=== PATIENT | male | born 1950 | race Caucasian/White ===

== ENCOUNTER 2023-04-02 17:06 | Emergency (ER) | payer MEDICARE, SELFPAY ==
[2023-04-02 17:16] VITALS: BP 100/76; PULSE 70; RESP 16; TEMP 36.5; O2SAT 97; BMI 25.7
--- NOTE | 2023-04-02 17:37 | HMH.EDGENADL ---
Discharge Plan Disposition Patient Disposition: Home, Self-Care Referrals Follow up/Referrals: Yvette Graves [Primary Care Provider] - See instructions Activity Restrictions/Add. Instructions Additional Instructions/Restrictions: Please treat for facial skin lacerations that are very small with topical antibiotic ointment and Band-Aids. On bedside ultrasound of the facial wound there is a 0.5 cm area 1 to 2 cm in depth that may represent a small glass foreign body. Please keep an eye on spreading redness and pus drainage. We discussed risk and benefits of attempting foreign body removal, CAT scan, etc. and with shared decision making at the moment we opted to not attempt foreign body removal. Return with any worsening concerns or symptoms. Clinical Impressions Clinical Impression: Face lacerations, Laceration of chest, Glass foreign body in skin Instructions Patient Instructions: DI for Laceration Repair Discharge ED Provider: Jose Collazo General Adult HPI General Chief complaint: Wound/Laceration Stated complaint: a Time Seen by Provider: 04/02/23 17:16 Mode of Arrival: Ambulatory Source of Information: Patient and Spouse Limitations: No Limitations Description of Symptoms (Recalled from ER Triage Doc. by RN): 72 yo M presents to ED with laceration to left side of face, by ear. and left chest wall area. pt reports that he was sandblasting glass and a piece come back and hit the pt. History of Present Illness HPI narrative: Patient is a 72-year-old male here with superficial glass lacerations after he was pressure washing a gauge with a glass wall that exploded sustaining an injury to the left lateral side of his chest and left lateral side of his face. No history of retained foreign body that is his concern at the moment. Tetanus status is unknown. No injuries elsewhere. Did not hit his eyes or anything else. Related Data Allergies Allergy/AdvReac Type Severity Reaction Status Date / Time PCN (PENICILLIN) Allergy Severe S-DIFF. Uncoded 07/04/17 14:52 [facility] Disclaimer: The information contained in this section may have been updated after the patient was seen, as this information can be updated by other users. Social History Smoking Status: Never smoker alcohol intake: never current occupational status: other Travel in the last 8 weeks: None ROS Obtained: Yes All systems reviewed & no additional complaints except as documented Physical Exam General General appearance: alert Head Head exam: other (0.5 cm laceration to the left maxillary/temporal region hemostatic wound edges well approximated) Chest Chest inspection: Present other (0.5 cm laceration to left anterior chest wall wound edges reapproximated no obvious foreign body) Respiratory Respiratory exam: Present normal lung sounds bilaterally Cardiovascular Cardiovascular exam: Present regular rate; Absent tachycardia Neurological Exam Neurological exam: Present alert and oriented X3 Medical Decision Making [place] Inquiry Pt receiving controlled substance: No Vital Signs: 04/02/23 17:16 Temperature 97.7 F Temperature Source Oral Pulse Rate [Left] 70 Respiratory Rate 16 Blood Pressure [Right Arm] 100/76 L Blood Pressure Mean [Right Arm] 84 02 Sat by Pulse Oximetry 97 Orders (Tests/Meds): ED MEDICATIONS Generic Name Dose Route Start Last Admin Trade Name Freq PRN Reason Stop Dose Admin Tetanus/Reduced Diphtheria/Acell Pertussis 0.5 ml 04/02/23 17:20 04/02/23 17:33 Tet/Diphth/Pert-Adult 0.5ml Syringe IM 04/02/23 17:21 0.5 ml .ONCE ONE Administration Medical Decision Narrative: 72-year-old male with superficial lacerations following glass that broke right in front of him hitting his chest wall and his face. No evidence of a foreign body in the chest wall but there is concern for glass foreign body in his face. I discussed with him to make a definitive diagnosis would need a
[2023-04-02 17:56] VITALS: BP 119/70; PULSE 68; RESP 19; TEMP 36.6
== END 2023-04-02 17:57 | disposition home or self-care (01) ==
PROVIDERS: Emergency Provider Student in an Organized Health Care Education/Training Program; PCP Family Medicine
DX: S01.412A Laceration without foreign body of left cheek and temporomandibular area, initial encounter (principal); S21.112A Laceration without foreign body of left front wall of thorax without penetration into thoracic cavity, initial encounter; W25.XXXA Contact with sharp glass, initial encounter; Z23 Encounter for immunization
CPT/HCPCS: 90715; 96372; 99284

== ENCOUNTER 2024-07-30 15:59 | Outpatient (CLI) | payer MEDICARE, SELFPAY ==
[2024-07-30 15:09] LABS: Alanine Aminotransferase 21 U/L (12-78); Albumin Level 4.4 g/dl (3.5-5.0); Albumin/Globulin Ratio 2.1 (1.1-1.8); Alkaline Phosphatase 96 U/L (38-126); Anion Gap 10.3 mEq/L (5-15); Aspartate Amino Transferase 37 U/L (17-59); Bilirubin,Total 0.6 mg/dl (0.2-1.3); Blood Urea Nitrogen 9 mg/dl (9-20); Calcium 9.2 mg/dl (8.4-10.2); Carbon Dioxide 28 mmol/L (22.0-30.0); Chloride 106 mmol/L (98-107); Chol/HDL Ratio 10.2 (1-3.5); Cholesterol 275 mg/dl (140-200); Estimated Glomerular Filt Rate 73 ml/min (>60); GFR (African American) 88 ML/MIN (>60); Globulin 2.1 g/dL (1.3-3.2); Glucose 101 mg/dl (74-100); HDL Cholesterol 27 mg/dl (40-60); Potassium 3.3 mmoL/L (3.5-5.1); Sodium 141 mmol/L (136-145); Total Protein,Serum 6.5 g/dl (6.3-8.2); Triglycerides 326 mg/dl (30-150); VLDL Cholesterol 65 mg/dL (0-40)
[2024-07-30 15:21] LABS: Direct LDL Cholesterol 163.21 mg/dL (100-129)
[2024-07-30 15:47] LABS: HIV Combo NEGATIVE (Negative)
[2024-07-30 15:55] LABS: Hepatitis C Ab Qual. W/ RFX NEGATIVE (Negative)
== END 2024-07-30 23:59 | disposition home or self-care (01) ==
LOC: LAB.DROPOF 16:00
PROVIDERS: PCP Internal Medicine; Visit Provider Internal Medicine
DX: Z00.00 Encounter for general adult medical examination without abnormal findings (principal); Z79.899 Other long term (current) drug therapy; Z11.4 Encounter for screening for human immunodeficiency virus [HIV]; Z11.59 Encounter for screening for other viral diseases; E78.5 Hyperlipidemia, unspecified; Z13.220 Encounter for screening for lipoid disorders
CPT/HCPCS: 80053; 80061; 86803; 87389

== ENCOUNTER 2025-04-02 16:10 | Outpatient (CLI) | payer MEDICARE, SELFPAY ==
--- OUTSIDE RECORDS SUMMARY | 2025-03-12 10:20 | XMS_ITS | Encounter Summary ---
[facility] [address] [place] [address] Care Team Providers Care Assistant Superintendent Name Role Phone Jose Elena Primary Care Provider + Reason for Visit * Reason Comments Hypertensive heart disease without heart failure Encounter Details Date Type Department Care Team (Late st Contact Info) Description 03/12/2025 10:20 AM EDT Office Visit [facility] [address] [facility] [address] [place] [phone] Casi Dubon, ASSOCIATE PROFESSOR OF SURGERY [address] [facility] [address] [place] [address] Precordial pain (Primary Dx); Hypertensive heart disease without heart failure; Dyslipidemia Social History Tobacco Use Types Packs/Day Years Used Date Smoking Tobacco: Never Passive Smoke Exposure: Past Smokeless Tobacco: Never Alcohol Use Standard Drinks/Week Comments No 0 (1 standard drink = 0.6 oz pur e alcohol) Abuse Screen Answer Date Recorded Feels Unsafe at Home or Work/School no 04/04/2024 Feels Threatened by Someone no 03/17 Does Anyone Try to Keep You From Having Contact with Others or Doing Things Outside Your Home? no 04/04/2024 Physical Signs of Abuse Present no 04/04/2024 PHQ-2 Answer Date Recorded Patient Health Questionnaire-2 Score 0 03/12/2025 Sex and Gender Information Value Date Recorded Sex Assigned at Not on file Legal Sex Male 1:41 PM EDT Gender Identity Not on file Sexual Orientation Not on file documented as of this encounter Last Filed Vital Signs Vital Sign Reading Time Taken Comments Blood Pressure 114/64 03/12/2025 10:37 AM EDT Pulse 61 03/12/2025 10:37 AM EDT Temperature - - Respiratory Rate - - Oxygen Saturation 97% 03/12/2025 10:37 AM EDT Inhaled Oxygen Concentration - - Weight 95.4 kg (210 lb 6.4 oz) 03/12/2025 10:19 AM EDT Height 175.3 cm (5' 9 ) 03/12/2025 10:19 AM EDT Body Mass Index 31.07 03/12/2025 10:19 AM EDT documented in this encounter Progress Notes * Casi Dubon, ASSOCIATE PROFESSOR OF SURGERY - 03/12/2025 10:20 AM EDTAssociated Order(s): ECG 12 Lead Post-Procedure Diagnose(s): Precordial pain Subjective: Encounter Date:03/12/2025 Patient ID: 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 white male, semi-retired terminal system operator, from [place], [place]. FORMER PHYSICIAN: Joss Darling MD CURRENT PHYSICIAN: Yvette Graves DO NEUROSURGEON: Leonardo Freeman MD . Chief Complaint: Chief Complaint Patient presents with Hypertensive heart disease without heart failure Problem List: Probable hypertensive cardiovascular disease: Remote CCS class I-II chest pain syndrome with NYHA class II exertional dyspnea with fatigue syndrome. Abnormal acceptable echocardiographic GXT without findings suggestive of focal obstructive coronaryartery disease with preserved LVEF and moderate reduction in predicted exercise capacity with normal BNP/D-dimer, 03/06/2014. Echocardiogram 05/29/2024: LVEF 59.3%, grade 1 diastolic dysfunction, no significant valvular abnormalities Cardiac PET 05/29/2024: LVEF greater than 70%, no evidence of ischemia Residual class I symptoms, September 2021 , September 2022, CCS class II chest discomfort/NYHA class II dyspnea on exertion symptoms April 2024 with acceptable ECG, residual class I symptoms August 2024,February 2025 Chronic hypertension/probably essential. Intermittent palpitations Dyslipidemia (LDL cholesterol 103, June 2016). On statin therapy Adenoids. Cervical spine osteoarthritis with left arm and left leg painful paresthesias. History of hiatal hernia. GERD syndrome. Remote skin cancer with surgical removal - data deficit. Cervical spine fusion by Dr. Freeman, 2013. Remote maculopapular rash right jeffery, questionably neurodermatitis. Right rotator cuff tear Lumbar back pain with sciatica Allergies Allergen Reactions Penicillins Shortness Of Breath and Rash Current Outpatient Medications Medication Instructions amLODIPine-benazepril (LOTREL 5-20) 5-20 MG per capsule 1 capsule, Oral, Daily cholecalciferol (VITAMIN D3) 2,000 Units, Daily clotrimazole-betamethasone (LOTRISONE) 1-0.05 % cream 1 Application, As Needed diazePAM (VALIUM) 5 mg, Nightly PRN fenofibrate (TRICOR) 54 mg, Daily fexofenadine (MICAELA) 180 mg, As Needed furosemide (LASIX) 20 MG tablet TAKE 1 TO 2 TABLETS BY MOUTH ONCE A DAY NEEDED FOR EDEMA gabapentin (NEURONTIN) 600 mg hydroCHLOROthiazide (MICROZIDE) 12.5 mg, Oral, Daily levothyroxine (SYNTHROID, LEVOTHROID) 125 mcg, Daily nitroglycerin (NITROSTAT) 0.4 MG SL tablet 1 under the tongue as needed for angina, may repeat q5mins for up three doses omeprazole (PRILOSEC) 20 mg, Daily rosuvastatin (CRESTOR) 40 mg, Oral, Daily tamsulosin (FLOMAX) 0.4 MG capsule 24 hr capsule 1 capsule, Daily vitamin B-12 (CYANOCOBALAMIN) 500 mcg, Daily HISTORY OF PRESENT ILLNESS: The patient is here for 6-month follow-up.Patient had a stress test May 2024 with no evidence of ischemia. Echocardiogram showed normal EF, no significant valvular abnormalities. Patient is on limited activity due to pain. He is going to see the pain doctor today. He says that he cannot tolerate much activity and has difficulties going from the sitting to standing positions or walking. He sometimes sits on a bucket to do some of his work. He denies any chest pain, shortness of breath, palpitations, presyncope, or syncope. If he stands up too quickly he will occasionally have lightheadedness. He is now just taking 12.5 mg of hydrochlorothiazide. Occasionally he will have some right knee swelling and has as needed Lasix to use. He stopped taking his rosuvastatin on his own a couple months ago. He is also not taking his omeprazole. He is supposed to have labs next month with his primary care physician. I advised the patient to restart his rosuvastatin. If he starts to have myalgias,could switch to PCSK9 inhibitor. ROS All other systems reviewed and otherwise negative. ECG 12 Lead Date/Time: 03/12/2025 10:52 AM Performed by: Casi Dubon APRN Authorized by: Casi Dubon APRN Rhythm comments: Normal sinus rhythm, normal ECG, 61 bpm, [place] 188 ms, QRS 90 ms, QTc 424 ms, premature supraventricular complexes no longer present compared to ECG April 2024 Objective: Vitals: 03/12/25 1019 03/12/25 1037 BP: 110/62 114/64 BP Location: Right arm Right arm Patient Position: Sitting Standing Cuff Size: Adult Pulse: 65 61 SpO2: 97% 97% Weight: 95.4 kg (210 lb 6.4 oz) Height: 175.3 cm (69 ) Body mass index is 31.07 kg/m??. Wt Readings from Last 2 Encounters: 03/12/25 95.4 kg (210 lb 6.4 oz) 09/12/24 99.4 kg (219 lb 3.2 oz) Constitutional: Appearance: Healthy appearance. Not in distress. Neck: Vascular: No JVR. JVD normal. Pulmonary: Effort: Pulmonary effort is normal. Breath sounds: Normal breath sounds. No wheezing. No rhonchi. No rales. Chest: Chest wall: Not tender to palpatation. Cardiovascular: PMI at left midclavicular line. Normal rate. Regular rhythm. Normal S1. Normal S2. Murmurs: There is a grade 2/6 systolic murmur at the LLSB. No gallop. No click. No rub. Pulses: Intact distal pulses. Edema: Peripheral edema absent. Abdominal: General: Bowel sounds are normal. Palpations: Abdomen is soft. Tenderness: There is no abdominal tenderness. Musculoskeletal: Normal range of motion. General: No tenderness. Skin: General: Skin is warm and dry. Neurological: General: No focal deficit present. Mental Status: Alert and oriented to person, place and time. Lab Review: Lab Results Component Value Date GLUCOSE 103 (H) 05/08/2024 BUN 17 05/08/2024 CREATININE 1.17 05/08/2024 BCR 14.5 05/08/2024 CO2 25.0 05/08/2024 CALCIUM 9.7 05/08/2024 ALBUMIN 4.2 05/08/2024 AST 21 05/08/2024 ALT 14 05/08/2024 Lab Results Component Value Date WBC 7.75 05/08/2024 HGB 14.4 05/08/2024 HCT 42.4 05/08/2024 MCV 85.8 05/08/2024 PLT 242 05/08/2024 Lab Results Component Value Date HGBA1C 5.8 05/26/2014 Lab Results Component Value Date TSH 3.120 05/08/2024 Lab Results Component Value Date CHOL 162 05/08/2024 Lab Results Component Value Date TRIG 134 05/08/2024 Lab Results Component Value Date HDL 38 (L) 05/08/2024 Lab Results Component Value Date LDL 100 05/08/2024 Lab Results Component Value Date BNP 34 03/06/2014 Results for orders placed in visit on 05/08/24 Adult Transthoracic Echo Complete W/ Cont if Necessary Per Protocol 05/29/2024 2:16 PM Interpretation Summary Left ventricular systolic function is normal. Calculated left ventricular EF = 59.3% Left ventricular ejection fraction appears to be 56 - 60%. Left ventricular diastolic function is consistent with (grade I) impaired relaxation. Advance Care Planning ACP discussion was held with the patient during this visit. Patient does not have an advance directive, information provided. Assessment: Overall continued acceptable course with no new interim cardiopulmonary complaints with acceptable functional status on limited activity. We will defer additional diagnostic or therapeutic intervention from a cardiac perspective at this time. Patient had a stress test May 2024 with no evidenceof ischemia. Echocardiogram showed normal EF, no significant valvular abnormalities. Hopefully I will get to review the patient's next laboratory testing results. ECG normal in office today. Recommended patient restart his rosuvastatin. He has upcoming labs next month. Diagnosis Plan 1. Precordial pain No recurrent angina pectoris or CHF on current activity schedule; continue current treatment 2. Hypertensive heart disease without heart failure No recurrent angina pectoris or CHF on current activity schedule; continue current treatment 3. Dyslipidemia Acceptable lipid panel April 2024, continue rosuvastatin Plan: Patient to continue current medications and close follow up with the above providers. Tentative cardiology follow up in August 2025 or patient may return sooner PRN. Recommended patient restart his rosuvastatin. He has upcoming labs next month. If he has myalgias, could switch to PCSK9 inhibitor or Leqvio Electronically signed by Casi Dubon APRN, 03/12/25, 10:55 AM EDT. documented in this encounter Plan of Treatment Upcoming Encounters Date Type Department Care Team (Late st Contact Info) Description 04/24/2025 11:30 AM EDT Office Visit [facility] [address] [facility] [address] [place] [address] Zena Mirza PA-C [address] [facility] [address] [place], [place] [id number] 09/12/2025 10:40 AM EST Office Visit [facility] [address] [facility] [address] [address] [place] [address] Casi Dubon APRN [address] [facility] [address] [place], [place] [phone] documented as of this encounter Goals Goal Patient Goal Type Associated Problems Recent Progress Patient-Stated? Author Help patient manage hypertension Care Plan Patient has diagnosis of hypertension No Casi Dubon APRN Help patient manage nicotine dependency Care Plan Patient may have nicotine dependency No Casi Dubon APRN documented as of this encounter Procedures Procedure Name Priority Date/Time Associated Diagnosis Comments ECG 12-LEAD Routine 03/12/2025 Precordial pain documented in this encounter Results * ECG 12-LEAD (03/12/2025) Narrative 03/12/2025 Casi Dubon APRN 03/12/2025 10:58 AM ECG 12 Lead Date/Time: 03/12/2025 10:52 AM Performed by: Casi Dubon APRN Authorized by: Casi Dubon APRN Rhythm comments: Normal sinus rhythm, normal ECG, 61 bpm, [place] 188 ms, QRS 90 ms, QTc 424 ms, premature supraventricular complexes no longer present compared to ECG April 2024 Procedure Note Casi Dubon APRN - 03/12/2025 10:20 AM EDT Subjective: Encounter Date:03/12/2025 Patient ID: 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 FORMER PHYSICIAN: Joss Darling MD CURRENT PHYSICIAN: Yvette Graves DO NEUROSURGEON: Leonardo Freeman MD . Chief Complaint: Chief Complaint Patient presents with Hypertensive heart disease without heart failure Problem List: Probable hypertensive cardiovascular disease: Remote CCS class I-II chest pain syndrome with NYHA class II exertionaldyspnea with fatigue syndrome. Abnormal acceptable echocardiographic GXT without findings suggestive offocal obstructive coronary artery disease with preserved LVEF and moderatereduction in predicted exercise capacity with normal BNP/D-dimer,03/06/2014. Echocardiogram 05/29/2024: LVEF 59.3%, grade 1 diastolic dysfunction, nosignificant valvular abnormalities Cardiac PET 05/29/2024: LVEF greater than 70%, no evidence of ischemia Residual class I symptoms, September 2021 , September 2022, CCS class II chestdiscomfort/NYHA class II dyspnea on exertion symptoms April 2024 withacceptable ECG, residual class I symptoms August 2024, February 2025 Chronic hypertension/probably essential. Intermittent palpitations Dyslipidemia (LDL cholesterol 103, June 2016). On statin therapy Adenoids. Cervical spine osteoarthritis with left arm and left leg painfulparesthesias. History of hiatal hernia. GERD syndrome. Remote skin cancer with surgical removal - data deficit. Cervical spine fusion by Dr. Freeman, 2013. Remote maculopapular rash right jeffery, questionably neurodermatitis. Right rotator cuff tear Lumbar back pain with sciatica Allergies Allergen Reactions Penicillins Shortness Of Breath and Rash Current Outpatient Medications Medication Instructions amLODIPine-benazepril (LOTREL 5-20) 5-20 MG per capsule 1 capsule, Oral,Daily cholecalciferol (VITAMIN D3) 2,000 Units, Daily clotrimazole-betamethasone (LOTRISONE) 1-0.05 % cream 1 Application, AsNeeded diazePAM (VALIUM) 5 mg, Nightly PRN fenofibrate (TRICOR) 54 mg, Daily fexofenadine (MICAELA) 180 mg, As Needed furosemide (LASIX) 20 MG tablet TAKE 1 TO 2 TABLETS BY MOUTH ONCE A DAYAS NEEDED FOR EDEMA gabapentin (NEURONTIN) 600 mg hydroCHLOROthiazide (MICROZIDE) 12.5 mg, Oral, Daily levothyroxine (SYNTHROID, LEVOTHROID) 125 mcg, Daily nitroglycerin (NITROSTAT) 0.4 MG SL tablet 1 under the tongue as neededfor angina, may repeat q5mins for up three doses omeprazole (PRILOSEC) 20 mg, Daily rosuvastatin (CRESTOR) 40 mg, Oral, Daily tamsulosin (FLOMAX) 0.4 MG capsule 24 hr capsule 1 capsule, Daily vitamin B-12 (CYANOCOBALAMIN) 500 mcg, Daily HISTORY OF PRESENT ILLNESS: The patient is here for 6-month follow-up.Patient had a stress testMay 2024 with no evidence of ischemia. Echocardiogram showed normalEF, no significant valvular abnormalities. Patient is on limited activitydue to pain. He is going to see the pain doctor today. He says that hecannot tolerate much activity and has difficulties going from the sittingto standing positions or walking. He sometimes sits on a bucket to dosome of his work. He denies any chest pain, shortness of breath,palpitations, presyncope, or syncope. If he stands up too quickly he willoccasionally have lightheadedness. He is now just taking 12.5 mg ofhydrochlorothiazide. Occasionally he will have some right knee swellingand has as needed Lasix to use. He stopped taking his rosuvastatin on hisown a couple months ago. He is also not taking his omeprazole. He issupposed to have labs next month with his primary care physician. Iadvised the patient to restart his rosuvastatin. If he starts to havemyalgias, could switch to PCSK9 inhibitor. ROS All other systems reviewed and otherwise negative. ECG 12 Lead Date/Time: 03/12/2025 10:52 AM Performed by: Casi Dubon APRN Authorized by: Casi Dubon APRN Rhythm comments: Normal sinusrhythm, normal ECG, 61 bpm, [place] 188 ms, QRS 90 ms, QTc 424 ms, prematuresupraventricular complexes no longer present compared to ECG April2024 Objective: Vitals: 03/12/25 1019 03/12/25 1037 BP: 110/62 114/64 BP Location: Right arm Right arm Patient Position: Sitting Standing Cuff Size: Infant Adult Pulse: 65 61 SpO2: 97% 97% Weight: 95.4 kg (210 lb 6.4 oz) Height: 175.3 cm (69 ) Body mass index is 31.07 kg/m . Wt Readings from Last 2 Encounters: 03/12/25 95.4 kg (210 lb 6.4 oz) 09/12/24 99.4 kg (219 lb 3.2 oz) Constitutional: Appearance: Healthy appearance. Not in distress. Neck: Vascular: No JVR. JVD normal. Pulmonary: Effort: Pulmonary effort is normal. Breath sounds: Normal breath sounds. No wheezing. No rhonchi. No rales. Chest: Chest wall: Not tender to palpatation. Cardiovascular: PMI at left midclavicular line. Normal rate. Regular rhythm. Normal S1.Normal S2. Murmurs: There is a grade 2/6 systolic murmur at the LLSB. No gallop. No click. No rub. Pulses: Intact distal pulses. Edema: Peripheral edema absent. Abdominal: General: Bowel sounds are normal. Palpations: Abdomen is soft. Tenderness: There is no abdominal tenderness. Musculoskeletal: Normal range of motion. General: No tenderness. Skin: General: Skin is warm and dry. Neurological: General: No focal deficit present. Mental Status: Alert and oriented to person, place and time. Lab Review: Lab Results Component Value Date GLUCOSE 103 (H) 05/08/2024 BUN 17 05/08/2024 CREATININE 1.17 05/08/2024 BCR 14.5 05/08/2024 CO2 25.0 05/08/2024 CALCIUM 9.7 05/08/2024 ALBUMIN 4.2 05/08/2024 AST 21 05/08/2024 ALT 14 05/08/2024 Lab Results Component Value Date WBC 7.75 05/08/2024 HGB 14.4 05/08/2024 HCT 42.4 05/08/2024 MCV 85.8 05/08/2024 PLT 242 05/08/2024 Lab Results Component Value Date HGBA1C 5.8 05/26/2014 Lab Results Component Value Date TSH 3.120 05/08/2024 Lab Results Component Value Date CHOL 162 05/08/2024 Lab Results Component Value Date TRIG 134 05/08/2024 Lab Results Component Value Date HDL 38 (L) 05/08/2024 Lab Results Component Value Date LDL 100 05/08/2024 Lab Results Component Value Date BNP 34 03/06/2014 Results for orders placed in visit on 05/08/24 Adult Transthoracic Echo Complete W/ Cont if Necessary Per Melwmwlg15/13/2024 2:16 PM Interpretation Summary Left ventricular systolic function is normal. Calculated leftventricular EF = 59.3% Left ventricular ejection fraction appears to be 56- 60%. Left ventricular diastolic function is consistent with (grade I)impaired relaxation. Advance Care Planning ACP discussion was held with the patient during this visit. Patient doesnot have an advance directive, information provided. Assessment: Overall continued acceptable course with no new interim cardiopulmonarycomplaints with acceptable functional status on limited activity. We willdefer additional diagnostic or therapeutic intervention from a cardiacperspective at this time. Patient had a stress test May 2024 with noevidence of ischemia. Echocardiogram showed normal EF, no significantvalvular abnormalities. Hopefully I will get to review the patient's nextlaboratory testing results. ECG normal in office today. Recommendedpatient restart his rosuvastatin. He has upcoming labs next month. Diagnosis Plan 1. Precordial pain No recurrent angina pectoris or CHF on currentactivity schedule; continue current treatment 2. Hypertensive heart disease without heart failure No recurrent anginapectoris or CHF on current activity schedule; continue current treatment 3. Dyslipidemia Acceptable lipid panel April 2024, continuerosuvastatin Plan: Patient to continue current medications and close follow up with the aboveproviders. Tentative cardiology follow up in August 2025 or patient may returnsooner PRN. Recommended patient restart his rosuvastatin. He has upcoming labs nextmonth. If he has myalgias, could switch to PCSK9 inhibitor or Leqvio Electronically signed by Casi Dubon APRN, 03/12/25, 10:55 AM EDT. Casi Dubon APRN ECG ORDERABLES Final Resul t documented in this encounter Visit Diagnoses Diagnosis Precordial pain- Primary Hypertensive heart disease without heart failure Unspecified hypertensive heart disease without heart failure Dyslipidemia Other and unspecified hyperlipidemia documented in this encounter Additional Health Concerns Active Problems Noted Date Diagnosed Date Patient has diagnosis of hypertension 10/11/2023 Patient may have nicotine dependency 10/11/2023 documented as of this encounter Care Teams Assistant Superintendent Relationship Specialty Start Date End Date Jose Elena DO [address] [place] [address] [place] [address] PCP - General Internal Medicine 04/17/24 documented as of this encounter
--- OUTSIDE RECORDS SUMMARY | 2025-03-12 12:10 | XMS_ITS | Encounter Summary ---
[facility] Address [address] [place] [address] Care Team Providers Care Property Management Intern Name Role Phone Jose Elena DO Primary Care Provider + Reason for Referral * Surgical (Routine) - Closed Specialty Diagnoses / Procedures Referred By Jaskaranac t Referred To Contact Diagnoses Lumbar radiculopathy Procedures External Facility Surgical/Procedural Request David Valencia MD 1760 [facility] [address] [place] [address] Phone: tel: fax: [facility] 3000 [facility] [address] [place] [address] Phone: tel: fax: Referral ID Status Reason Start Date Expiration Date V isits Requested Visits Authorized [id number] Closed Other 03/12/2025 06/11/2026 1 1 Reason for Visit * Reason Comments Back Pain New patient Encounter Details Date Type Department Care Team (Late st Contact Info) Description 03/12/2025 12:10 PM EDT Office Visit [facility] PAIN [facility]NAGEMENT [address] [facility] [address] [place] [phone] David Valencia MD 1760 [facility] 302 [place] [address] Lumbar radiculopathy (Primary Dx); Spinal stenosis of lumbar region with neurogenic claudication; Lumbosacral spondylosis without myelopathy; Chronic pain syndrome Social History Tobacco Use Types Packs/Day Years [...] Sign Reading Time Taken Comments Blood Pressure - - Pulse - - Temperature - - Respiratory Rate - - Oxygen Saturation - - Inhaled Oxygen Concentration - - Weight 95.3 kg (210 lb) 03/12/2025 11:55 AM EDT Height 175.3 cm (5' 9 ) 03/12/2025 11:55 AM EDT Body Mass Index 31.01 03/12/2025 11:55 AM EDT documented in this encounter Functional Status documented as of this encounter Progress Notes * David Valencia MD - 03/12/2025 12:10 PM EDT Referring Physician: Caryn Loya, PAZackaryC [address] [facility] [address] [place] [address] Primary Physician: Jose Elena DO CHIEF COMPLAINT or REASON FOR VISIT: Back Pain (New patient) Initial history of present illness on 03/12/2025: Mr. Caden Young is 74 y.o. male who presents as a new patient referral for evaluation and treatment of chronic low back pain with radiation left lower extremity. Pain is present for greater than 6 months without any specific inciting known trauma but has been worsening over time. He denies any prior history of spinal surgery or intervention. Has been eval by neurosurgery, Caryn Loya PA-C, and was referred for consideration of epidural steroid injection. Has tried physical therapy, NSAIDs with modest benefit. Describes numbness tingling pain radiating to the left foot. Patient denies any new onset bowel or bladder dysfunction, lower extremity weakness, saddle anesthesia or unexplained weight loss. 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 Cervical disc disorder Hyperlipidemia Hypertension Low back pain Lumbosacral disc disease Peripheral neuropathy Pulmonary arterial hypertension Past Surgical History: Past Surgical History: Procedure Laterality Date ANTERIOR CERVICAL DISCECTOMY W/ FUSION 05/28/2014 ACDF C6-7 BACK SURGERY 2016 upper [place] INJECTION 2022 Family History Family History Problem Relation Age of Onset Heart disease Father Heart attack Cancer Sister Ovarian Seizures Brother Stroke Mother Hypertension Mother Stroke Social History Social History Socioeconomic History Marital status: Tobacco Use Smoking status: Never Passive exposure: Past Smokeless tobacco: Never Vaping Use Vaping status: Never Used Substance and Sexual Activity Alcohol use: No Drug use: No Sexual activity: Not Currently Partners: Female control/protection: Condom Medications: Current Outpatient Medications: amLODIPine-benazepril (LOTREL 5-20) 5-20 MG per capsule, Take 1 capsule by mouth Daily., Disp: 90 capsule, Rfl: 2 cholecalciferol (VITAMIN D3) 1000 units tablet, Take 2 tablets by mouth Daily., Disp: , Rfl: diazePAM (VALIUM) 5 MG tablet, Take 1 tablet by mouth At Night As Needed., Disp: , Rfl: furosemide (LASIX) 20 MG tablet, TAKE 1 TO 2 TABLETS BY MOUTH ONCE A DAY NEEDED FOR EDEMA, Disp:, Rfl: gabapentin (NEURONTIN) 600 MG tablet, Take 1 tablet by mouth., Disp: , Rfl: hydroCHLOROthiazide (MICROZIDE) 12.5 MG capsule, Take 1 capsule by mouth Daily., Disp: 90 capsule, Rfl: 0 nitroglycerin (NITROSTAT) 0.4 MG SL tablet, 1 under the tongue as needed for angina, may repeat q5mins for up three doses, Disp: 50 tablet, Rfl: 11 omeprazole (PriLOSEC) 20 MG capsule, Take 1 capsule by mouth Daily., Disp: , Rfl: 0 tamsulosin (FLOMAX) 0.4 MG capsule 24 hr capsule, 1 capsule Daily., Disp: , Rfl: vitamin B-12 (CYANOCOBALAMIN) 500 MCG tablet, Take 1 tablet by mouth Daily., Disp: , Rfl: clotrimazole-betamethasone (LOTRISONE) 1-0.05 % cream, Apply 1 Application topically to the appropriate area as directed As Needed. (Patient not taking: Reported on 03/12/2025), Disp: , Rfl: fenofibrate (TRICOR) 54 MG tablet, Take 1 tablet by mouth Daily. (Patient not taking: Reported on 03/12/2025), Disp: , Rfl: fexofenadine (MICAELA) 180 MG tablet, Take 1 tablet by mouth As Needed. (Patient not taking: Reported on 03/12/2025), Disp: , Rfl: levothyroxine (SYNTHROID, LEVOTHROID) 125 MCG tablet, Take 1 tablet by mouth Daily. (Patient not taking: Reported on 03/12/2025), Disp: , Rfl: rosuvastatin (CRESTOR) 40 MG tablet, Take 1 tablet by mouth Daily. (Patient not taking: Reported on03/12/2025), Disp: 90 tablet, Rfl: 3 Physical Exam: Vitals: 03/12/25 1155 Weight: 95.3 kg (210 lb) Height: 175.3 cm (69 ) PainSc: 5 PainLoc: Back General: Alert and oriented, No acute distress. HEENT: Normocephalic, atraumatic. Cardiovascular: No gross edema Respiratory: Respirations are non-labored Lumbar Spine: No masses or atrophy Range of motion - Flexion reduced. Extension reduced. Facet Loading: Positive bilaterally Facet Palpation - Nontender Felisa finger/Gaenslen's/Delon's/DARA/Thigh thrust - Straight leg raise/slump test: Positive left Multifidus toe-touch test: Motor Exam: Strength: Rate on 1-5 scale Right Left L1/2- hip flexion 5/5 5/5 L3- knee extension 5/5 5/5 L4- ankle dorsiflexion 5/5 5/5 L5- great toe extension 5/5 5/5 S1- ankle plantarflexion 5/5 5/5 Sensory Exam: Full and equal sensation to light touch throughout. Neurologic: Cranial Nerves II-XII are grossly intact. Psychiatric: Cooperative. Gait: Normal Assistive Devices: None Imaging Studies: No results found for this or any previous visit. 03/12/2025 Independent review of radiographic imaging: Available for my interpretation is lumbar MRI dated April 06, 2024 demonstrating dextroscoliosis with apex at L2; severe canal stenosis at L2/L3 with severe left-sided foraminal stenosis; moderate to severe L3/L4 canal stenosis; ankylosis of L5/S1 intervertebral disc space with large posterior disc herniation causing left lateral recess stenosis. Impression & Plan: 03/12/2025: 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 male with past medical history significant for HTN, HLD, C6-7 ACDF who presents to the pain clinic for evaluation and treatment of chronic low back pain with radiation to left lower extremity. MRI interpretation above. Evaluation consistent with lumbar radiculo angel. We discussed epidural steroid injection to improve pain. If greater than 50% relief for at least 2-3 months can consider repeat as needed every 3 to 4 months. I had a discussion with the patient regarding the risks of the procedure including bleeding, infection, damage to surrounding structures. We discussed the potential adverse effects of corticosteroid injection including flushing of the face, lipodystrophy, skin discoloration, elevated blood glucose, increased blood pressure. Risks of frequent steroid administration include weight gain, hormonal changes, mood changes, osteoporosis. 1. Lumbar radiculopathy 2. Spinal stenosis of lumbar region with neurogenic claudication 3. Lumbosacral spondylosis without myelopathy 4. Chronic pain syndrome PLAN: 1. Medications: Agree with gabapentin 2. Physical Therapy: Continue HEP 3. Psychological: defer 4. Complementary and alternative (CAM) Therapies: 5. Labs/Diagnostic studies: None indicated 6. Imaging: MRI independently interpreted and reviewed with patient 7. Interventions: Schedule left paramedian lumbar interlaminar epidural steroid injection (possibleL5/S1). Consider TFESI 8. Referrals: None indicated 9. Records: reviewed neurosurgical notes 10. Lifestyle goals: Follow-up 1 month [facility] Pain Management David Valencia MD Quality Metrics: Please note that portions of this note were completed with a voice recognition program. Any copied data in any portion of my note from previous notes included in the HPI, PE, MDM and/or assessment and plan has been reviewed by myself and accurate as of this date. The Cures Act makes medical notes like this available to patients in the interest of transparency. This is a medical document intended as peer to peer communication. It is written in medical language and may contain abbreviations or verbiage that are unfamiliar. It may appear blunt or direct. Medical documents are intended to carry relevant information, facts as evident, and the clinical opinion of the practitioner. documented in this encounter Plan of Treatment Upcoming Encounters Date Type Department Care Team (Late st Contact Info) Description 04/24/2025 11:30 AM EDT Office Visit [facility] PAIN MANAGEMENT [address] [facility] [address] [place] [address] Zena Mirza PA-C [address]60 [facility] [address] [place] [address] 09/12/2025 10:40 AM EST Office Visit [facility] CARDIOLOGY [address] [facility] [address] [place] [phone] Casi Dubon APRN 1720 [facility] [address] [place] [address] Scheduled Orders Name Type Priority Associated Diagnoses Orde r Schedule External Facility Surgical/Procedural Request Procedures Routine Lumbar radiculopathy Expected: 03/12/2025, Expires: 03/12/2026 documented as of this encounter Goals Goal Patient Goal Type Associated Problems Recent Progress Patient-Stated? Author Help patient manage hypertension Care Plan Patient has diagnosis of hypertension No Casi Dubon APRN Help patient manage nicotine dependency Care Plan Patient may have nicotine dependency No Casi Dubon APRN documented as of this encounter Visit Diagnoses Diagnosis Lumbar radiculopathy- Primary Thoracic or lumbosacral neuritis or radiculitis, unspecified Spinal stenosis of lumbar region with neurogenic claudication Lumbosacral spondylosis without myelopathy Chronic pain syndrome documented in this encounter Additional Health Concerns Active Problems Noted Date Diagnosed Date Patient has diagnosis of hypertension 10/11/2023 Patient may have nicotine dependency 10/11/2023 documented as of this encounter Care Teams Property Management Intern Relationship Specialty Start Date End Date Jose Elena DO [address] [place] [address] PCP - General Internal Medicine 04/17/24 documented as of this encounter
--- OUTSIDE RECORDS SUMMARY | 2025-03-20 07:45 | XMS_ITS | Encounter Summary ---
[facility] Address [address] [place] [phone] Care Team Providers Care Manager Area Name Role Phone Jose Elena DO Primary Care Provider + Reason for Visit * Surgical (Routine) - Closed Specialty Diagnoses / Procedures Referred By Dc t Referred To Contact Diagnoses Lumbar radiculopathy Procedures External Facility Surgical/Procedural Request David Valencia MD [address] [address] Phone: tel: fax: [facility] AT [address] [place] [address] Phone: tel: fax: Referral ID Status Reason Start Date Expiration Date V isits Requested Visits Authorized [id number] Closed Other 03/12/2025 06/11/2026 1 1 Encounter Details Date Type Department Care Team (Late st Contact Info) Description 03/20/2025 7:45 AM EDT Outside Facility Service [facility] PAIN MANAGEMENT [address] [phone] David Valencia MD [address]60 [place] [address] Social History Tobacco Use Types Packs/Day Years [...] on file documented as of this encounter Plan of Treatment Upcoming Encounters Date Type Department Care Team (Late st Contact Info) Description 04/24/2025 11:30 AM EDT Office Visit [facility] PAIN MANAGEMENT [address] [facility] [address] [place] [address] Zena Mirza PA-C 1760 [facility] [address] [place] [address] 09/12/2025 10:40 AM EST Office Visit [facility] CARDIOLOGY [address] [facility] [address] [place] [phone] Casi Dubon APRN [address] [facility] [address] [place] [phone] documented as of this encounter Goals Goal Patient Goal Type Associated Problems Recent Progress Patient-Stated? Author Help patient manage hypertension Care Plan Patient has diagnosis of hypertension No Casi Dubon APRN Help patient manage nicotine dependency Care Plan Patient may have nicotine dependency No Casi Dubon APRN documented as of this encounter Visit Diagnoses Not on filedocumented in this encounter Additional Health Concerns Active Problems Noted Date Diagnosed Date Patient has diagnosis of hypertension 10/11/2023 Patient may have nicotine dependency 10/11/2023 documented as of this encounter Care Teams Manager Area Relationship Specialty Start Date End Date Jose Elena DO [address] [place] [address] PCP - General Internal Medicine 04/17/24 documented as of this encounter
[2025-04-02 17:23] LABS: Hematocrit 38.0 % (42.0-52.0); Hemoglobin 12.9 g/dL (14.1-18.0); Immature Granulocytes % 0.2 %; Mean Corpuscular HGB Conc 33.9 g/dL (31.8-35.4); Mean Corpuscular Hemoglobin 28.6 pg (27.0-31.2); Mean Corpuscular Volume 84.3 fl (80-94); Nucleated Red Blood Cells % 0 %; Platelet Count 224 K/mm3 (142-424); Red Blood Count 4.51 M/mm3 (4.60-6.20); Red Cell Distribution Width-SD 43.8 fL; White Blood Count 8.3 K/mm3 (4.8-10.8)
[2025-04-02 17:44] LABS: Alanine Aminotransferase 16 U/L (12-78); Albumin Level 4.2 g/dl (3.5-5.0); Albumin/Globulin Ratio 1.8 (1.1-1.8); Alkaline Phosphatase 82 U/L (38-126); Anion Gap 10.7 mEq/L (5-15); Aspartate Amino Transferase 31 U/L (17-59); Bilirubin,Total 1.1 mg/dl (0.2-1.3); Blood Urea Nitrogen 12 mg/dl (9-20); Calcium 8.7 mg/dl (8.4-10.2); Carbon Dioxide 27 mmol/L (22.0-30.0); Chloride 104 mmol/L (98-107); Creatinine,Serum 1.20 mg/dl (0.66-1.25); Estimated Glomerular Filt Rate 59 ml/min (>60); GFR (African American) 71 ML/MIN (>60); Globulin 2.3 g/dL (1.3-3.2); Glucose 95 mg/dl (74-100); Potassium 3.7 mmoL/L (3.5-5.1); Sodium 138 mmol/L (136-145); Total Protein,Serum 6.5 g/dl (6.3-8.2)
--- OUTSIDE RECORDS SUMMARY | 2025-04-03 10:50 | XMS_ITS | Encounter Summary ---
[facility] Address [address] [place] [address] Care Team Providers Care Light Rail Vehicle Operator Name Role Phone Jose Elena Primary Care Provider + Reason for Visit * Reason Comments Med Refill Encounter Details Date Type Department Care Team (Late st Contact Info) Description 09/16/2024 Refill [facility] CARDIOLOGY [address] [facility] [address] [place], [place] [phone] Maco Peter MD [address] [facility] [address] [place] [address] Med Refill Social History Tobacco Use Types Packs/Day Years [...] Physical Signs of Abuse Present no 04/04/2024 Sex and Gender Information Value Date Recorded Sex Assigned at Not on file Legal Sex Male 1:41 PM EDT Gender Identity Not on file Sexual Orientation Not on file documented as of this encounter Plan of Treatment Upcoming Encounters Date Type Department Care Team (Late st Contact Info) Description 04/24/2025 11:30 AM EDT Office Visit [facility] PAIN MANAGEMENT [address] [facility] [address] [place] [address] Zena Mirza PA-C 1760 [facility] [address] [place], [place] [phone] 09/12/2025 10:40 AM EST Office Visit [facility] CARD[facility] [address] [facility] [address] [place] [address] Casi Dubon APRN [address] [facility] [address] [place], [place] [phone] documented as of this encounter Goals Goal [...] documented as of this encounter Care Teams Light Rail Vehicle Operator Relationship Specialty Start Date End Date Jose Elena DO [address] [place] [address] PCP - General Internal Medicine 04/17/24 documented as of this encounter
--- OUTSIDE RECORDS SUMMARY | 2025-04-03 10:50 | XMS_ITS | Encounter Summary ---
Author Organization [facility] Address [address] [place] [address] Care Team Providers Care Ski Patrol Officer Name Role Phone Jose Elena Primary Care Provider + Encounter Details Date Type Department Care Team (Late st Contact Info) Description 03/20/2025 Documentation [facility] PAIN MANAGEMENT [address] [address] David Valencia MD [address]60 [place] [address] Social History Tobacco Use Types Packs/Day Years [...] on file documented as of this encounter Progress Notes * David Valencia MD - 03/20/2025 11:09 AM EDT [facility] [address] [place] [address] Date of service: 03/20/2025 PROCEDURE: Fluoroscopically-guided LEFT Paramedian Lumbar Interlaminar Epidural Steroid Injection PRE-OP DIAGNOSIS: Lumbar radiculopathy POST-OP DIAGNOSIS: Same BLOOD THINNERS (ANTIPLATELETS/ANTICOAGULANTS): Were discussed with the patient and YNES Guidelines were followed. CONSENT: Risks, benefits and options were explained to the patient, all questions were answered andwritten informed consent was obtained. ANESTHESIA: Moderate sedation was required to maintain comfort, safety, and cooperation during the procedure. The duration of sedation service was over 10 minutes. Patient received 1mg IV Versed and 50mcg IV fentanyl. Independent observation and monitoring was performed by Hayde Valencia. The patient's level of consciousness and physiologic status was continually monitored with pulse oximetry, EKG from 1102 to 1112. There were no complications or adverse events during sedation. After the sedationpatient was taken to the recovery area. PROCEDURE NOTE: A pre-procedural time out was performed to confirm the correct patient, procedure, side, and site. Standard ASA monitors were applied and oxygen via nasal cannula was provided. All proceduralists donned sterile gloves with masks and surgical hats. The patient was placed prone with pillow under the abdomen and all pressure points padded. The patient's lumbar spine was prepped in standard fashion using [Chlorhexidine] and draped with sterile towels. The target lumbar interspace was identified using fluoroscopy. The overlying skin and subcutaneous tissue was anesthetized with 1% lidocaine. A 20 gauge 10 cm Tuohy needle was advanced using intermittent AP and lateral fluoroscopy.The ligamentum flavum was engaged. Access to the epidural space was gained using a loss of resistance technique to air. Needle placement was confirmed with 1 ml of Omnipaque 180 mgI/ml contrast usingbiplanar live fluoroscopic imaging. An epidurogram was noted without evidence of intravascular or intrathecal spread. After negative aspiration, a mixture containing 3 ml of preservative-free normal saline, dexamethasone 10mg steroid, lidocaine 1% - 2 ml local anesthetic for a total volume of 6 ml was injected under direct visualization with fluoroscopy. The Tuohy needle was flushed, removed and a bandage applied. EBL: None COMPLICATIONS: None The patient tolerated the procedure well. Vital signs were stable. Sensory and motor exam was unchanged from baseline. The patient was observed in recovery and was discharged after meeting established criteria. FOLLOW UP: As scheduled ADDITIONAL NOTES: [facility] Pain Management David Valencia MD CODES: [id number] documented in this encounter Plan of Treatment Upcoming Encounters Date Type Department Care Team (Late st Contact Info) Description 04/24/2025 11:30 AM EDT Office Visit [facility] PAIN MANAGEMENT [address] [facility] [address] [place] [address] Zena Mirza PA-C [address]60 [facility] [address] [place], [place] [phone] 09/12/2025 10:40 AM EST Office Visit [facility] CARDIOLOGY 1720 [facility] 400 [place] [phone] Casi Dubon APRN [address] [facility] [address] [place], [place] [phone] documented as of this encounter Goals Goal [...] documented as of this encounter Care Teams Ski Patrol Officer Relationship Specialty Start Date End Date Jose Elena DO [address] [place] [address] [place] [address] PCP - General Internal Medicine 04/17/24 documented as of this encounter
--- OUTSIDE RECORDS SUMMARY | 2025-04-03 10:50 | XMS_ITS | Encounter Summary ---
[facility] Address [address] [place] [phone] Care Team Providers Care Innersole Maker Name Role Phone Jose Elena DO Primary Care Provider + Reason for Referral * Pain Management (Routine) - Pending Review Specialty Diagnoses / Procedures Referred By Dc t Referred To Contact Pain Medicine Diagnoses Lumbar radiculopathy Spinal stenosis, lumbar region, without neurogenic claudication Procedures ND OFFICE/OUTPATIENT NEW MODERATE MDM 45 MINUTES Caryn Loya PA-C [address] [place] [address] Phone: tel: fax: David Valencia MD 1760 [place] [address] Phone: tel: fax: Referral ID Status Reason Start Date Expiration Date Visits Requested Visits Authorized [id number] Pending Review Specialty Services Required 02/24/2025 05/26/2026 1 1 Encounter Details Date Type Department Care Team (Late st Contact Info) Description 02/21/2025 Telephone [facility] NEUROSURGERY [address] [place] [phone] Caryn Loya PA-C 1760 [facility] [address] [place] [address] Social History Tobacco Use Types Packs/Day Years [...] as of this encounter Progress Notes * Wood Ohara CMA - 02/24/2025 8:37 AM EDTAddended by: WOOD OHARA on: 02/24/2025 08:37 AM Modules accepted: Orders documented in this encounter Miscellaneous Notes * Telephone Encounter - Wood Ohara CMA - 02/24/2025 8:25 AM EDT Provider: Tete Surgery/Procedure: duane Surgery/Procedure Date: na Last visit: Office Visit with Caryn Loya PA-C (06/04/2024) Next visit: as needed Reason for call: Patients called Monday and wanted a referral to PM. I have called ans spoke to the this morning and told her that I would send this in to the wind turbine erector * Telephone Encounter - Brittany Diaz RegSched Rep - 02/21/2025 4:53 PM EDT Patients called and patient would like a referral to pain mgmt documented in this encounter Plan of Treatment Upcoming Encounters Date Type Department Care Team (Late st Contact Info) Description 04/24/2025 11:30 AM EDT Office Visit [facility] PAIN MANAGEMENT [address] [facility] [address] [place] [address] Zena Mirza PA-C 1760 [facility] [address] [place], [place] [phone] 09/12/2025 10:40 AM EST Office Visit [facility] CARDIOLOGY [address] [facility] [address] [place] [address] Casi Dubon APRN [address] [facility] [address] [place], [place] [phone] Scheduled Referrals Name Type Priority Associated Diagnoses Orde r Schedule Ambulatory Referral to Pain Management Outpatient Referral Routine Lumbar radiculopathy Spinal stenosis, lumbar region, without neurogenic claudication Ordered: 02/24/2025 documented as of this encounter Goals Goal Patient Goal Type Associated Problems Recent Progress Patient-Stated? Author Help patient manage hypertension Care Plan Patient has diagnosis of hypertension No Casi Dubon APRN Help patient manage nicotine dependency Care Plan Patient may have nicotine dependency No Casi Dubon APRN documented as of this encounter Visit Diagnoses Diagnosis Spinal stenosis, lumbar region, without neurogenic claudication- Primary Lumbar radiculopathy Thoracic or lumbosacral neuritis or radiculitis, unspecified documented in this encounter Additional Health Concerns Active Problems Noted Date Diagnosed Date Patient has diagnosis of hypertension 10/11/2023 Patient may have nicotine dependency 10/11/2023 documented as of this encounter Care Teams Innersole Maker Relationship Specialty Start Date End Date Jose Elena DO [address] [place] [address] PCP - General Internal Medicine 04/17/24 documented as of this encounter
--- OUTSIDE RECORDS SUMMARY | 2025-04-03 10:50 | XMS_ITS | Encounter Summary ---
Author Organization [facility] Address [address] [place] [address] Care Team Providers Care Author Agent Name Role Phone Jose Elena Altaf Primary Care Provider + Encounter Details Date Type Department Care Team (Latest Contact Info) Description 03/12/2025 Travel Social History Tobacco Use Types Packs/Day Years [...] on file documented as of this encounter Functional Status documented as of this encounter Plan of Treatment Upcoming Encounters Date Type Department Care Team (Late st Contact Info) Description 04/24/2025 11:30 AM EDT Office Visit [facility] PAIN MANAGEMENT [address] [address] Zena Mirza PA-C [address] [place] [address] [place] [phone] 09/12/2025 10:40 AM EST Office Visit [facility] CARDIOLOGY [address] [place] [id number] Casi Dubon APRN [address] [place] [address] documented as of this encounter Goals Goal [...] documented as of this encounter Care Teams Author Agent Relationship Specialty Start Date End Date Jose Elena DO [address] [facility] [address] [place] [address] PCP - General Internal Medicine 04/17/24 documented as of this encounter
--- OUTSIDE RECORDS SUMMARY | 2025-04-03 10:50 | XMS_ITS | Clinical Summary ---
Author Organization [facility] Address [address] [place] [address] Care Team Providers Care Car Chaser Name Role Phone Ulices Jose Altaf Primary Care Provider + Allergies Active Allergy Reactions Criticality Noted Date Comments Penicillins Shortness Of Breath,Rash High 12/08/2015 Medications omeprazole (PriLOSEC) 20 MG capsule Take 1 capsule by mouth Daily. 0 12/05/19 16 Active cholecalciferol (VITAMIN D3) 1000 units tablet Take 2 tablets by mouth Daily. Active fexofenadine (MICAELA) 180 MG tablet Take 1 tablet by mouth As Needed. Active vitamin B-12 (CYANOCOBALAMIN) 500 MCG tablet Take 1 tablet by mouth Daily. Active tamsulosin (FLOMAX) 0.4 MG capsule 24 hr capsule 1 capsule Daily. 06/04/20 19 Active diazePAM (VALIUM) 5 MG tablet Take 1 tablet by mouth At Night As Needed. 08/06/19 20 Active fenofibrate (TRICOR) 54 MG tablet Take 1 tablet by mouth Daily. 08/06/19 20 Active levothyroxine (SYNTHROID, LEVOTHROID) 125 MCG tablet Take 1 tablet by mouth Daily. 08/31/19 21 Active clotrimazole-bet amethasone (LOTRISONE) 1-0.05 % cream Apply 1 Application topically to the appropriate area as directed As Needed. 07/01/20 20 Active hydroCHLOROthiaz ana (MICROZIDE) 12.5 MG capsule Take 1 capsule by mouth Daily. 90 capsule 09/12/19 25 Active nitroglycerin (NITROSTAT) 0.4 MG SL tablet 1 under the tongue as needed for angina, may repeat q5mins for up three doses 50 tablet 11 09/12/19 25 Active rosuvastatin (CRESTOR) 40 MG tablet Take 1 tablet by mouth Daily. 90 tablet 3 09/12/19 25 Active Additional Information Patient not taking.Reported on 03/12/2025 amLODIPine-benaz epril (LOTREL 5-20) 5-20 MG per capsuleIndicatio ns:Essential hypertension Take 1 capsule by mouth Daily. 90 capsule 2 09/18/19 25 Active furosemide (LASIX) 20 MG tablet TAKE 1 TO 2 TABLETS BY MOUTH ONCE A DAY NEEDED FOR EDEMA 12/18/19 25 Active gabapentin (NEURONTIN) 600 MG tablet Take 1 tablet by mouth. 03/11/20 25 Active gabapentin (NEURONTIN) 300 MG capsule Take 1 capsule by mouth 5 (Five) Times a Day As Needed. 05/29/20 19 025 Discontinu ed(Dose adjustment ) methocarbamol (ROBAXIN) 750 MG tablet Take 1 tablet by mouth 3 (Three) Times a Day As Needed for Muscle Spasms for up to 24 doses. 24 tablet 04/04/20 24 025 Discontinu ed(*Therap y completed) meloxicam (MOBIC) 7.5 MG tablet 04/10/20 24 025 Discontinu ed(*Therap y completed) traZODone (DESYREL) 50 MG tablet 08/06/19 25 025 Discontinu ed(*Therap y completed) potassium chloride (KLOR-CON M20) 20 MEQ CR tablet Take 1 tablet by mouth Daily. 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 t failure 08/16/2017 Dyslipidemia 08/16/2017 Encounters Date Type Department Care Team Description 03/20/2025 7:45 AM EDT Outside Facility Service [facility] PAIN MANAGEMENT [address] [place] [address] David Valencia MD 03/20/2025 Patient rounding ([facility] only) [facility] PAIN MANAGEMENT [address] [facility] [address] [place] [address] David Valencia MD 03/20/2025 Documentation [facility] PAIN MANAGEMENT [address] [facility] [address] [place] [address] David Valencia MD 03/12/2025 12:10 PM EDT Office Visit [facility] PAIN MANAGEMENT [address] [facility] [address] [place] [address] David Valencia MD Lumbar radiculopathy (Primary Dx); Spinal stenosis of lumbar region with neurogenic claudication; Lumbosacral spondylosis without myelopathy; Chronic pain syndrome 03/12/2025 10:20 AM EDT Office Visit [facility] CARDIOLOGY [address] [facility] [address] [place] [address] Casi Dubon APRN Precordial pain (Primary Dx); Hypertensive heart disease without heart failure; Dyslipidemia 03/12/2025 Travel 02/21/2025 Telephone [facility] NEUROSURGERY [address] [facility] [address] [place] [address] Caryn Loya PA-C from Last 3 Months Family History Medical History Relation Name Comments Seizures Brother Heart disease Father Rk Young Heart attack Hypertension Mother Diegoiene Meena YOUNG Stro ke Stroke Mother Diegoienambika YOUNG Cancer Sister Tomasa Ortega Ovarian Relation Name Status Comments Brother Father Rk Young Mother Diegoienambika YOUNG Sister Tomasa Ortega Social History Tobacco Use Types Packs/Day Years [...] on file Sexual Orientation Not on file Last Filed Vital Signs Vital Sign Reading Time Taken Comments Blood Pressure 114/64 03/12/2025 10:37 AM EDT Pulse 61 03/12/2025 10:37 AM EDT Temperature 36.1 C (96.9 F) 06/04/2024 2:17 PM EST Respiratory Rate 18 04/04/2024 3:14 PM EDT Oxygen Saturation 97% 03/12/2025 10:37 AM EDT Inhaled Oxygen Concentration - - Weight 95.3 kg (210 lb) 03/12/2025 11:55 AM EDT Height 175.3 cm (5' 9 ) 03/12/2025 11:55 AM EDT Body Mass Index 31.01 03/12/2025 11:55 AM EDT Plan of Treatment Upcoming Encounters Date Type Department Care Team (Late st Contact Info) Description 04/24/2025 11:30 AM EDT Office Visit [facility] PAIN MANAGEMENT [address] [facility] [address] [place] [phone] Zena Mirza PA-C [address] [facility] [address] [place] [phone] 09/12/2025 10:40 AM EST Office Visit [facility] CARDIOLOGY [address] [facility] [address] [place] [phone] Casi Dubon, PATIENT APPOINTMENT COORDINATOR [address] [facility] [address] [place] [phone] Health Maintenance Due Date Last Done Comments COLOGUARD 1993 COLON CANCER SCREENING 5 YEA R SIGMOIDOSCOPY 1993 COLONOSCOPY 1993 [address] CANCER SCREENING 1993 CT COLONOGRAPHY 1993 FECAL OCCULT BLOOD TEST 1993 FIT Testing (1 year) 1993 ZOSTER VACCINE (1 of 2) 1998 HEPATITIS C SCREENING 07/11/2017 Pneumococcal Vaccine 50+ (2 of 2 - PPSV23) 07/12/2017 07/12/2016 ANNUAL WELLNESS VISIT 06/13/2023 06/13/2022, 021 RSV Vaccine - Adults (1 - 1- dose 75+ series) 2023 COVID-19 Vaccine (1 - 2023-2 5 season) 2025 INFLUENZA VACCINE 04/16/2025 06/13/2022, , 06/13/2022, Additional history exists TDAP/TD VACCINES (2 - Td or Tdap) 04/02/2033 023 HEMOGLOBIN A1C Discontinued 06/13/2022, 04/16, 01/29/2021, Additional history exists Goals Goal Patient Goal Type Associated Problems Recent Progress Patient-Stated? Author Help patient manage hypertension Care Plan Patient has diagnosis of hypertension No Casi Dubon APRN Help patient manage nicotine dependency Care Plan Patient may have nicotine dependency No Casi Dubon APRN Procedures Procedure Name Priority Date/Time Associated Diagnosis Comments ECG 12-LEAD Routine 03/12/2025 Precordial pain HEMOGLOBIN A1C Routine 05/26/2014 2:50 PM EST from Last 3 Months or Most Recently Relevant to Health Maintenance Results * ECG 12-LEAD (03/12/2025) Narrative 03/12/2025 Casi Dubon APRN 03/12/2025 10:58 AM ECG 12 Lead Date/Time: 03/12/2025 10:52 AM Performed by: Casi Dubon APRN Authorized by: Casi Dubon APRN Rhythm comments: Normal sinus rhythm, normal ECG, 61 bpm, MS 188 ms, QRS 90 ms, QTc 424 ms, premature supraventricular complexes no longer present compared to ECG April 2024 Procedure Note Jagdish Casi Daily, PATIENT APPOINTMENT COORDINATOR - 03/12/2025 10:20 AM EDT Subjective: Encounter Date:03/12/2025 Patient ID: 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 white male,semi-retired combination machine tool operator, from [place], [place]. FORMER PHYSICIAN: Joss Darling MD CURRENT [...] comments: Normal sinusrhythm, normal ECG, 61 bpm, MS 188 ms, QRS 90 ms, QTc 424 [...] Echo Complete W/ Cont if Necessary Per Kwwcmnlr99/13/2024 2:16 PM Interpretation Summary Left ventricular systolic [...] Casi Dubon APRN, 03/12/25, 10:55 AM EDT. us Casi Dubon APRN ECG ORDERABLES Final Resul t * Hemoglobin A1c (05/26/2014 2:50 PM EST) Hemoglobin A1C 5.8 4.00 - 6.00 % [facility] Comment: DF by IF @ 05/26/2014 16:02 The [place] [employer] recommends maintenance of Hemoglobin A1C at 7.0% or lower. Goals for Hemoglobin A1C reduction may need to be modified if hypoglycemia is a problem. Mean Bld Glu Estim. 114 mg/dL [facility] Blood specimen (specimen) 05/26/2014 2:50 PM EST Narrative [facility] - 05/26/2014 4:02 PM EST Specimen Type: Blood us Leonardo Freeman MD LAB BLOOD ORDERABLES Final Re sult [facility] [address] [place] [address], from Last 3 Months or Most Recently Relevant to Health Maintenance Additional Health Concerns Active Problems Noted Date Diagnosed Date Patient has diagnosis of hypertension 10/11/2023 Patient may have nicotine dependency 10/11/2023 Insurance MEDICARE A & B [facility] Care Teams Car Chaser Relationship Specialty Start Date End Date Ulices Josediego Solitario DO [address] [place] [address] [place] [address] PCP - General Internal Medicine 04/17/24
--- OUTSIDE RECORDS SUMMARY | 2025-04-03 10:50 | XMS_ITS | Encounter Summary ---
Author Organization [facility] Address [address] [place] [address] Care Team Providers Care Detasseler Name Role Phone Jose Elena Altaf Primary Care Provider + Encounter Details Date Type Department Care Team (Late st Contact Info) Description 03/20/2025 Patient rounding ([facility] only) [facility] PAIN MA[facility]GEMENT [address] [address] David Valencia MD [address] [place] [address] Social History Tobacco Use Types Packs/Day Years [...] Description 04/24/2025 11:30 AM EDT Office Visit [facility] PAIN MANAGEMENT [address] [facility] [address] [place] [address] Zena Mirza PA-C [address] [facility] [address] [place], [place] [phone] 09/12/2025 10:40 AM EST Office Visit [facility] CARDIOLOG[facility] [address] [facility] [facility] [address] [place] [address] Casi Dubon APRN [address] [facility] [address] [place], [place] [phone] documented as of this encounter Goals Goal [...] documented as of this encounter Care Teams Detasseler Relationship Specialty Start Date End Date Jose Elena DO [address] [facility] [address] [place] [address] PCP - General Internal Medicine 04/17/24 documented as of this encounter
== END 2025-04-02 23:59 ==
LOC: LAB.DROPOF 04-03 10:47
PROVIDERS: PCP Internal Medicine; Visit Provider Internal Medicine
DX: Z00.00 Encounter for general adult medical examination without abnormal findings (principal); Z79.899 Other long term (current) drug therapy
CPT/HCPCS: 80053; 85025